=== PATIENT | female | born 1945 | race Caucasian/White ===

== ENCOUNTER 2022-08-31 15:50 | Emergency (ER) | payer MEDICARE, SELFPAY ==
--- NOTE | 2022-08-31 15:57 | ED.GENADULT ---
HPI - General Adult General Chief complaint: Unspecified Stated complaint: High Blood Pressure Source: patient, family and RN notes reviewed History of Present Illness HPI narrative: 77 yo F presents to urgent care with her daughter and at side. Patient states she woke up this morning with dizziness so she checked her blood pressure noted it was high. Patient states the dizziness lasted a couple hours which then was relieved but states she was lightheaded. Pt's blood pressure continued to be high throughout the day. Pt denies any lightheadedness or dizziness now but reports feeling tired and drained. Pt denies any headache, blurry vision, numbness, tingling, chest pain or shortness of breath. Denies any recent illness including fevers and chills. Patient states she is taking daily medication as directed. Patient states she felt fine yesterday and had a good well check at her doctor's office on 08/19/22. Related Data Home Medications Medication Instructions Recorded Confirmed lisinopril 20 mg tablet 20 mg PO DAILY 08/31/22 08/31/22 metformin 1,000 mg tablet 1,000 mg PO BID 08/31/22 08/31/22 metoprolol succinate 50 mg capsule 50 mg PO DAILY 08/31/22 08/31/22 sprinkle, ext. release 24 hr pravastatin 40 mg tablet 40 mg PO DAILY 08/31/22 08/31/22 Allergies Allergy/AdvReac Type Severity Reaction Status Date / Time codeine Allergy Nausea Verified 08/31/22 16:11 niacin Allergy Rash Verified 08/31/22 16:11 Review of Systems Review of Systems: Pertinent positives and pertinent negatives per HPI. PMFSH Comments At the time of my signature, I reviewed and agree with the nursing past medical, surgical, social, and family history. There is no relevant family history pertinent to the patient complaint. Exam Narrative: GENERAL: This is a well-nourished, well-developed patient, in no apparent distress. HEAD: normocephalic, atraumatic. EYES: Sclera clear/white. Vision is grossly intact. EARS: External ears normal, auditory canals clear and without drainage. Hearing grossly intact. NOSE: External nose normal with no obvious nasal discharge, nares without redness, no rhinorrhea. THROAT: Mucous membranes moist, posterior pharynx clear. NECK: Neck supple, non-tender without lymphadenopathy, masses or thyromegaly. CARDIOVASCULAR: Regular rate and rhythm without murmurs, gallops, or rubs. RESPIRATORY: Clear to auscultation. Breath sounds equal bilaterally. No wheezes, rales, or rhonchi. SKIN: warm, intact with no suspicious lesions or rash, good texture and turgor. NEURO: awake, alert, and oriented to person, place and time. There were no obvious focal neurologic abnormalities. Course Course Level of Care: Express Care Visit Vital Signs Vital signs: Reviewed Medical Decision Making MDM Narrative Medical decision making narrative: Discussed reasons to transfer to ED with pt and family and they agree to go to [facility] ED for further evaluation. Report given to fallon Bertrand RN, at [facility] who accepts pt for Dr. Mooney. Pt is stable and appears well. NAD noted. No neuro deficit noted. Differential Diagnosis Differential Diagnosis: HTN crisis, CVA, HTN Critical Care Time Critical Care Time Critical Care Time: No Discharge Plan Discharge Clinical Impression: HTN (hypertension) Qualifiers: Hypertension type: unspecified Qualified Code(s): I10 - Essential (primary) hypertension Patient Disposition: Acute Care Hospital Condition: Stable Follow-up/Referrals: PHYSICIAN NOT ON STAFF,NONSTAFF [Primary Care Provider] -
[2022-08-31 16:08] VITALS: BP 180/90; PULSE 92; RESP 16; TEMP 37; O2SAT 97
== END 2022-08-31 16:22 | disposition short-term general hospital (02) ==
PROVIDERS: Emergency Provider Nurse Practitioner Family
DX: I10 Essential (primary) hypertension (principal); E78.00 Pure hypercholesterolemia, unspecified; E11.9 Type 2 diabetes mellitus without complications; Z90.10 Acquired absence of unspecified breast and nipple
CPT/HCPCS: 99212; G0463